=== PATIENT | female | born 1940 | race Caucasian/White ===

== ENCOUNTER 2021-01-09 13:54 | Outpatient (CLI) | payer MEDICARE, OTHER, SELFPAY ==
[2021-01-09 14:10] VITALS: BP 121/72; PULSE 72; RESP 16; TEMP 36.7; O2SAT 97; BMI 25.4
[2021-01-09 14:39] VITALS: BP 122/69; PULSE 74; RESP 17; TEMP 36.7; O2SAT 98
[2021-01-09 15:38] VITALS: BP 122/70; PULSE 74; RESP 16; TEMP 36.7; O2SAT 95
== END 2021-01-09 13:55 | disposition home or self-care (01) ==
LOC: OPS 13:59
PROVIDERS: PCP Family Medicine; Visit Provider Family Medicine
DX: U07.1 COVID-19 (principal)
CPT/HCPCS: 96365